=== PATIENT | female | born 1945 | race Caucasian/White ===

== ENCOUNTER 2016-05-07 11:45 | Emergency (ER) | payer OTHER ==
[2016-05-07] MEDS ORDERED: ASPIRIN PO ONE (11:55)
[2016-05-07 12:11] LABS: MANUAL DIFF NEEDED? NO
[2016-05-07 12:12] LABS: BASO% 0.7 % (0.0-0.8); EOS# 0.18 X1000 (0.0-0.7); EOS% 1.7 % (0.0-10.0); HEMATOCRIT 40.3 % (37.0-47.0); HEMOGLOBIN 13.5 g/dL (12.0-16.0); IMM GRAN# 0.03 X1000 (0.0-0.04); IMM GRAN% 0.3 % (0.0-0.5); LYMPH# 3.18 X1000 (1.2-3.4); LYMPH% 30.5 % (20.5-51.1); MCH 30.8 PG (27-31); MCHC 33.5 g/dL (33-37); MONO% 9.6 % (1.7-9.3); MPV 10.3 FL (7.4-10.4); NEUT% 57.2 % (42.2-75.2); PLT 365 X1000 (130-400); RBC 4.38 XMIL (4.2-5.4)
[2016-05-07 12:33] LABS: AGAP 12; ALBUMIN 4.1 g/dL (3.5-5.0); ALKALINE PHOSPHATASE 101 U/L (32-104); BUN 9 mg/dL (8-22); CALCIUM 10.5 mg/dL (8.8-10.2); CHLORIDE 101 mmol/L (98-107); CK PROFILE 32 U/L (24-173); COSMO 275; GOT 13 U/L (10-30); GPT 10 U/L (10-36); MAGNESIUM 2.2 mg/dL (1.5-2.7); POTASSIUM 4.4 mmol/L (3.5-5.1); SODIUM 138 mmol/L (136-145); TCO2 25 mmol/L (25-35); TOTAL PROTEIN 6.8 g/dL (6.3-8.3)
--- NOTE | 2016-05-07 13:00 | PROVIDER DOCUMENTATION ---
HPI-Chest Pain - General Source: patient - History of Present Illness-CP Location: reports: substernal Chest Pain Radiation: reports: back Quality of Pain: reports: tightness Severity in ED: mild, moderate Onset/Duration: abrupt, 1 hour ago Timing: improving, intermittent Context/Activities at Onset: reports: light activity Modifying Factors: improves with: nothing Associated Symptoms: reports: back pain, shortness of breath. denies: dizziness , fatigue, fever/chills, headache, nausea, vomiting Nitro Today/Relief: no nitro taken today Aspirin Treatment Today: 325 mg x 1, provided by ED Prior Chest Pain/Cardiac Workup: reports: no prior chest pain Similar Symptoms Previously?: No Recently Seen Here or By Another Healthcare Provider: Yes <Seymour Potter - Last Filed: 05/07/16 15:58> <Fredi Valencia - Last Filed: 05/07/16 17:20> - General Chief Complaint: Shortness of Breath Stated Complaint: CHEST TIGHTNESS,SOB Time Seen by Provider: 05/07/16 11:52 Allergies/Adverse Reactions: Patient Allergies Allergy/AdvReac Type Severity Reaction Status Date / Time Sulfa (Sulfonamide Allergy ANAPHYLAXIS Verified 08/18/15 01:01 Antibiotics) Home Medications: Home Medication List Medication Instructions Recorded Confirmed Last Taken Type Levothyroxine [Synthroid] 88 microgm PO DAILY 09/05/12 08/18/15 08/17/15 08:00 History Cetirizine HCl [Zyrtec] 10 mg PO DAILY 08/18/15 08/18/15 08/17/15 08:00 History Diltiazem HCl [Diltiazem 24Hr Cd] 240 mg PO DAILY 08/18/15 08/18/15 08/17/15 08: 00 History L.acidoph,Paracasei, B.lactis 1 each PO DAILY 08/18/15 08/18/15 08/17/15 08:00 History [Probiotic] Pantoprazole [Protonix] 40 mg PO DAILY@0700 08/18/15 08/18/15 08/17/15 08:00 History Polyethylene Glycol 3350 [Miralax] 17 gm PO DAILY 08/18/15 08/18/15 08/17/15 08: 00 History - History of Present Illness-CP Nature of Presenting Problem: patient is a 70 yo F that presents to the ER after having an episode of chest tightness. Pain is gone now but as been intermitted. patient reports having a cough, weakness, and shortness of breath x 3 weeks. Patient denies fever/chills , n/v/d but does have back pain. Has possible ischemic issues with heart and is followed by . Patient has been traveling back and forth to [place] , working on a house. (Seymour Potter) Review of Systems - Adult - REVIEW OF SYSTEMS - ADULT Constitutional: denies: chills, fever Eyes: reports: no symptoms reported Ears, Nose, Mouth & Throat: denies: ear pain, sinus problem, throat pain, throat swelling Cardiovascular: reports: chest pain. denies: palpitations, syncope Respiratory: reports: cough, shortness of breath. denies: wheezing Gastrointestinal: denies: abdominal pain, diarrhea, nausea, vomiting Genitourinary: reports: no symptoms reported Musculoskeletal: reports: back pain, muscle weakness. denies: joint pain, muscle aches, neck pain Integumentary: reports: no symptoms reported Neurological: reports: no symptoms reported Psychiatric: reports: no symptoms reported Endocrine: reports: no symptoms reported Hematologic/Lymphatic: reports: no symptoms reported Allergic/Immunologic: reports: no symptoms reported All Other Systems: Reviewed and Negative <Seymour Potter - Last Filed: 05/07/16 15:58> Past History - Adult - PAST MEDICAL HISTORY-ADULT Review of Records: reports: Old Records Reviewed, Nursing Assessment Review, Medications Reviewed Cardiovascular: reports: HTN Respiratory: reports: COPD Gastrointestinal: reports: diverticulosis Genitourinary: reports: other (renal cyst) Endocrine/Immune: reports: hypoglycemia - PRIOR SURGERIES/PROCEDURES Surgical/Procedure History: reports: colonoscopy, cholecystectomy, hysterectomy - IMMUNIZATION STATUS Childhood Immunizations: See Nurse Assessment Flu Vaccine: See Nurse Assessment - FAMILY HISTORY Family History: reviewed, not pertinent - SOCIAL HISTORY Smoking: cigarettes, less than 1 pack/day Living Situation: family <Seymour Potter - Last Filed: 05/07/16 15:58> Physical Exam-General - PHYSICAL EXAM-ADULT Initial Vital Signs Reviewed: Yes - CONSTITUTIONAL General Appearance: alert, no apparent distress - EYES Eyes: PERRL/EOMI, pink conjunctivae - HEAD, EARS, NOSE, MOUTH & THROAT HENMT: normocephalic/atraumatic, moist mucous membranes, normal ENT inspection - NECK Neck: non-tender, full range of motion, normal inspection - RESPIRATORY Respiratory: chest non-tender, lungs clear, normal breath sounds, no respiratory distress, no accessory muscle use - CARDIOVASCULAR Cardiovascular: regular rate, rhythm, no edema, no gallop, no murmur - GASTROINTESTINAL (ABDOMEN) Abdominal Exam: normal bowel sounds, non tender, soft, no organomegaly, no pulsatile mass - MUSCULOSKELETAL Back Exam: no CVA tenderness, no vertebral tenderness Extremity: normal range of motion, normal inspection, no pedal edema, normal capillary refill - SKIN Integumentary: normal color, warm/dry - NEUROLOGIC Neurologic: grossly normal, no motor/sensory deficits - PSYCHIATRIC Psych/Mental Status: normal mood/affect, normal thought content, normal thought process, oriented x 3 <Seymour Potter - Last Filed: 05/07/16 15:58> Progress - EKG 1 Time of EKG reading by physician:: 11:53 EKG Read and Signed by:: Fredi Valencia EKG Interpretation (*Must complete 3 of following elements*): Abnormal Rate: 105 Rhythm: Sinus tachycardia [place]: normal QRS: normal NV Interval: normal ST Wave: non-specific ST changes 2 Time of EKG reading by physician:: 14:16 EKG Read and Signed by:: Fredi Valencia EKG Interpretation (*Must complete 3 of following elements*): Abnormal Rate: 85 Rhythm: NSR [place]: normal QRS: normal NV Interval: normal ST Wave: non-specific ST changes - XRAY 1 XRAY Study: Chest Impression: Normal XRAY Interpretation: nml - CONSULTS/PCP/HOSPITALIST Notification #1 *Consult/PCP/Hospitalist*: Dr.Peter Benavides Time Discussed: 15:54 Consult Disposition: other (do third set of cardiacs if normal f/u in office) <Seymour Potter - Last Filed: 05/07/16 15:58> <Fredi Vaelncia - Last Filed: 05/07/16 17:20> - PLAN OF CARE/RESULTS Progress/Plan/Lab Results: plan of care-cardiac 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 These instructions are being provided to you so you can have an understanding of how to care for yourself upon discharge. Upon discharge from the Emergency Department, you are responsible for making arrangements for follow-up care by a physician of your choice. Take all prescribed medications as directed. Return to the Emergency Department immediately for any new or worsening symptoms. You may call the Physician Referral phone number at [phone] to obtain a list of Physicians who are taking new patients. Referrals: Carlos Eduardo Solomon MD [Primary Care Provider] - Manuel Mcleod MD [STAFF PHYSICIAN] - Call for Appoint. 1-2days Attestation - Scribe Verification/Attestation Scribe:: Seymour Potter Acting as Scribe for:: Fredi Valencia Scribe documention review:: This chart was documented by a scribe and accurately reflects the service the provider performed and the decisions made by the provider. <Seymour Potter - Last Filed: 05/07/16 15:58> Physician Attestation - Physician Attestation I, the provider, attest to the following statement:: Fredi Valencia Physician documentation Attestation:: This documentation recorded by the scribe accurately reflects the service I personally performed and the decisions made by me. <Seymour Potter - Last Filed: 05/07/16 15:58>
[2016-05-07 13:16] LABS: INR 0.95 (0.86-1.15)
[2016-05-07 13:17] LABS: PTT PL 29.2 Seconds (22.6-43.9)
[2016-05-07 13:47] LABS: BE 3.3 mmoll (-3.0-3.0); BLOOD TYPE ARTERIAL; METHB 0.9 % (0.0-1.5); O2(CT) 16.4 mL/dL (15.0-23.0); PCO2(98.6) 41 mmHg (35-45); PO2(98.6) 66 mmHg (60-100); SAMPLE BLOOD; SAO2 94.8 % (95.0-100.0); THB 13.1 g/dL (11.5-17.4); pH(98.6) 7.44 (7.35-7.45)
--- NOTE | 2016-05-07 13:54 | EKG Report ---
Test Performed on : 05/07/2016 11:53:56 AM Test Reason : chest tightness sob Blood Pressure : / mmHG Vent. Rate : 105 BPM Atrial Rate : 105 BPM P-R Int : 126 ms QRS Dur : 080 ms QT Int : 336 ms P-R-T Axes : 078 076 034 degrees QTc Int : 444 ms Sinus tachycardia. Nonspecific ST abnormality Abnormal ECG When compared with ECG of 17-AUG-2015 18:25, No significant change was found Unconfirmed Result
[2016-05-07 14:24] LABS: ALLEN TEST YES; DRAW SITE L RADIAL; MODALITY ROOM AIR
--- NOTE | 2016-05-07 14:28 | EKG Report ---
Test Performed on : 05/07/2016 2:16:16 PM Test Reason : cp Blood Pressure : / mmHG Vent. Rate : 085 BPM Atrial Rate : 085 BPM P-R Int : 134 ms QRS Dur : 082 ms QT Int : 368 ms P-R-T Axes : 074 071 033 degrees QTc Int : 437 ms Normal sinus rhythm. with sinus arrhythmia. Nonspecific ST abnormality Abnormal ECG When compared with ECG of 07-MAY-2016 11:53, (Unconfirmed) No significant change was found Unconfirmed Result
--- NOTE | 2016-05-07 17:07 | ED EKG INTERP ---
EKG Interpretation - EKG Time of EKG reading by physician:: 16:51 EKG Read and Signed by:: Fredi Valencia EKG Interpretation (*Must complete 3 of following elements*): Abnormal Rate: 74 Rhythm: NSR [place]: normal QRS: normal [place] Interval: normal ST Wave: non-specific ST changes Attestation - Scribe Verification/Attestation Scribe:: Seymour Potter Acting as Scribe for:: Fredi Valencia Scribe documention review:: This chart was documented by a scribe and accurately reflects the service the provider performed and the decisions made by the provider. Physician Attestation - Physician Attestation I, the provider, attest to the following statement:: Fredi Valencia Physician documentation Attestation:: This documentation recorded by the scribe accurately reflects the service I personally performed and the decisions made by me.
--- NOTE | 2016-05-07 17:07 | EKG Report ---
Test Performed on : 05/07/2016 4:51:11 PM Test Reason : cp Blood Pressure : / mmHG Vent. Rate : 074 BPM Atrial Rate : 074 BPM P-R Int : 142 ms QRS Dur : 084 ms QT Int : 390 ms P-R-T Axes : 071 070 032 degrees QTc Int : 432 ms Normal sinus rhythm. with sinus arrhythmia. Nonspecific ST abnormality Abnormal ECG When compared with ECG of 07-MAY-2016 14:16, (Unconfirmed) No significant change was found Unconfirmed Result
[2016-05-07 17:22] VITALS: BP 160/83
== END 2016-05-07 17:38 | disposition home or self-care (01) ==
LOC: P.ED 11:45
DX: R07.9 Chest pain, unspecified (principal); R94.31 Abnormal electrocardiogram [ECG] [EKG]; R05 Cough; R06.02 Shortness of breath; M54.9 Dorsalgia, unspecified; M62.81 Muscle weakness (generalized); I10 Essential (primary) hypertension; J44.9 Chronic obstructive pulmonary disease, unspecified; Z79.899 Other long term (current) drug therapy; F17.210 Nicotine dependence, cigarettes, uncomplicated
CPT/HCPCS: 36415; 71020; 80053; 82550; 82805; 83735; 83880; 84443; 84484; 85025; 85379; 85610; 85730; 93005; 99284

== ENCOUNTER 2016-05-30 13:30 | Emergency (ER) | payer OTHER ==
[2016-05-30] MEDS ORDERED: ASPIRIN PO STA (13:33)
--- NOTE | 2016-05-30 13:57 | EKG Report ---
Test Performed on : 05/30/2016 1:34:46 PM Test Reason : CHEST PAIN Blood Pressure : / mmHG Vent. Rate : 089 BPM Atrial Rate : 089 BPM P-R Int : 128 ms QRS Dur : 082 ms QT Int : 342 ms P-R-T Axes : 086 080 074 degrees QTc Int : 416 ms Normal sinus rhythm. with sinus arrhythmia. Nonspecific ST abnormality Abnormal ECG When compared with ECG of 07-MAY-2016 16:51, No significant change was found Unconfirmed Result
--- NOTE | 2016-05-30 14:07 | ED EKG INTERP ---
EKG Interpretation - EKG Time of EKG reading by physician:: 13:34 EKG Read and Signed by:: Fredi Valencia EKG Interpretation (*Must complete 3 of following elements*): Abnormal Rate: 89 Rhythm: normal sinus rhythm with sinus arrythmia Comments: nonspecific ST abnormality. Attestation - Scribe Verification/Attestation Scribe:: Mi Chadwick Acting as Scribe for:: Fredi Valencia Scribe documention review:: This chart was documented by a scribe and accurately reflects the service the provider performed and the decisions made by the provider.
[2016-05-30 14:08] LABS: MANUAL DIFF NEEDED? NO
[2016-05-30 14:11] LABS: BASO% 0.7 % (0.0-0.8); EOS# 0.17 X1000 (0.0-0.7); HEMATOCRIT 40.3 % (37.0-47.0); HEMOGLOBIN 13.4 g/dL (12.0-16.0); IMM GRAN# 0.04 X1000 (0.0-0.04); IMM GRAN% 0.5 % (0.0-0.5); LYMPH# 2.53 X1000 (1.2-3.4); LYMPH% 30.3 % (20.5-51.1); MCH 30.3 PG (27-31); MCHC 33.3 g/dL (33-37); MCV 91.2 FL (81-99); MONO# 0.66 X1000 (0.11-0.59); MONO% 7.9 % (1.7-9.3); MPV 10.5 FL (7.4-10.4); NEUT% 58.6 % (42.2-75.2); PLT 279 X1000 (130-400); RBC 4.42 XMIL (4.2-5.4)
[2016-05-30 14:25] LABS: INR 0.9 (0.86-1.15); PROTIME 12.5 Seconds (12.1-15.5)
[2016-05-30 14:26] LABS: PTT PL 27.6 Seconds (22.6-43.9)
--- NOTE | 2016-05-30 14:28 | PROVIDER DOCUMENTATION ---
HPI-Chest Pain - General Source: patient - History of Present Illness-CP Location: reports: central Chest Pain Radiation: reports: no radiation Quality of Pain: reports: pressure Severity in ED: mild Onset/Duration: this morning Timing: gone now Context/Activities at Onset: reports: light activity Modifying Factors: improves with: nothing Associated Symptoms: reports: abdominal pain (LLQ), headache, nausea. denies: back pain, diaphoresis, dizziness, edema, fatigue, fever/chills, heartburn, rash , shortness of breath, swelling/lump in chest, syncope, vomiting, weakness Nitro Today/Relief: 0.4 mg x 1, provided at home, complete relief Aspirin Treatment Today: 81 mg x 1, provided at home Prior Chest Pain/Cardiac Workup: reports: angina, cardiac cath Similar Symptoms Previously?: Yes Recently Seen Here or By Another Healthcare Provider: No <Mi Chadwick - Last Filed: 05/30/16 17:07> <Fredi Valencia - Last Filed: 05/31/16 22:44> - General Chief Complaint: Chest Pain Stated Complaint: CHEST PAIN Time Seen by Provider: 05/30/16 14:07 Allergies/Adverse Reactions: Patient Allergies Allergy/AdvReac Type Severity Reaction Status Date / Time Sulfa (Sulfonamide Allergy ANAPHYLAXIS Verified 08/18/15 01:01 Antibiotics) Home Medications: Home Medication List Medication Instructions Recorded Confirmed Last Taken Type Levothyroxine [Synthroid] 88 microgm PO DAILY 09/05/12 08/18/15 05/30/16 History Cetirizine HCl [Zyrtec] 10 mg PO DAILY 08/18/15 08/18/15 05/30/16 History Diltiazem HCl [Diltiazem 24Hr Cd] 240 mg PO DAILY 08/18/15 08/18/15 05/30/16 History L.acidoph,Paracasei, B.lactis 1 each PO DAILY 08/18/15 08/18/15 05/30/16 History [Probiotic] Polyethylene Glycol 3350 [Miralax] 17 gm PO DAILY 08/18/15 08/18/15 05/30/16 History Famotidine 1 tab PO DAILY 05/30/16 05/30/16 05/30/16 History - History of Present Illness-CP Nature of Presenting Problem: Pt is 70 y/o F presents to the ED with chest pain. Pt states CP stated this am. Pt states N but denies V. Pt states having recent travels. Pt states recently quit smoking. Pt states pain felt like a pressure. Pt states taking BP and BP was higher in R arm verses L arm. 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 (Mi Chadwick) Review of Systems - Adult - REVIEW OF SYSTEMS - ADULT Constitutional: denies: chills, fever Eyes: denies: blurred vision, double vision Ears, Nose, Mouth & Throat: denies: ear pain, nose pain, throat pain Cardiovascular: reports: chest pain, irregular heart rate (tachy). denies: heart murmur Respiratory: denies: cough, shortness of breath, wheezing Gastrointestinal: reports: abdominal pain (LLQ), nausea. denies: diarrhea, vomiting Genitourinary: denies: dysuria, hematuria Musculoskeletal: denies: bone pain, joint pain, neck pain Integumentary: denies: hives, itching Neurological: reports: headache/migraines (BECERRA). denies: dizziness/vertigo Psychiatric: reports: no symptoms reported Endocrine: reports: no symptoms reported Hematologic/Lymphatic: reports: no symptoms reported Allergic/Immunologic: reports: no symptoms reported All Other Systems: Reviewed and Negative <Mi Chadwick - Last Filed: 05/30/16 17:07> Past History - Adult - PAST MEDICAL HISTORY-ADULT Review of Records: reports: Nursing Assessment Review, Medications Reviewed, Social history reviewed & non-contributory. Major Childhood Illnesses: reports: denies history Cardiovascular: reports: HTN Respiratory: reports: COPD Gastrointestinal: reports: diverticulosis Obstetrical/Gynecological: reports: denies history Genitourinary: reports: kidney disease, other (renal cyst) Musculoskeletal: reports: denies history Neurological: reports: denies history Endocrine/Immune: reports: Diabetes, hypoglycemia, thyroid disorder Other Conditions: reports: denies history - PRIOR SURGERIES/PROCEDURES Surgical/Procedure History: reports: colonoscopy, cholecystectomy, hysterectomy - IMMUNIZATION STATUS Childhood Immunizations: See Nurse Assessment Flu Vaccine: See Nurse Assessment - FAMILY HISTORY Family History: reviewed, not pertinent - SOCIAL HISTORY Smoking: quit less than 1 year, cigarettes Provider spent 3-5 mins advising pt. on dangers of tobacco.: Discussed manners to quit use, and f/u contacts for add'l counseling. Substance Use: denies Living Situation: family <Jessica Chadwickomi - Last Filed: 05/30/16 17:07> Physical Exam-General - PHYSICAL EXAM-ADULT Initial Vital Signs Reviewed: Yes - CONSTITUTIONAL General Appearance: appears well, alert, no apparent distress - EYES Eyes: PERRL/EOMI, pink conjunctivae, fundi clear, no AV nicking - HEAD, EARS, NOSE, MOUTH & THROAT HENMT: normocephalic/atraumatic, moist mucous membranes, normal ENT inspection, TMs normal, pharynx normal - NECK Neck: non-tender, full range of motion, supple, normal inspection - RESPIRATORY Respiratory: chest non-tender, lungs clear, normal breath sounds, no pleuratic chest pain, no respiratory distress, no accessory muscle use - CARDIOVASCULAR Cardiovascular: normal peripheral pulses, no edema, no gallop, no JVD, no murmur , tachycardia - GASTROINTESTINAL (ABDOMEN) Abdominal Exam: normal bowel sounds, soft, no organomegaly, no pulsatile mass, tenderness (LLQ) - LYMPHATIC Lymphatic: no adenopathy - MUSCULOSKELETAL Back Exam: normal inspection, no CVA tenderness, no vertebral tenderness Extremity: normal range of motion, non-tender, normal gait, normal inspection, no pedal edema, no calf tenderness, normal capillary refill, pelvis stable - SKIN Integumentary: normal color, normal turgor, warm/dry - NEUROLOGIC Neurologic: grossly normal - PSYCHIATRIC Psych/Mental Status: normal mood/affect, oriented x 3 <FarrukhMi - Last Filed: 05/30/16 17:07> Progress - EKG 1 Time of EKG reading by physician:: 16:49 EKG Read and Signed by:: Fredi Valencia EKG Interpretation (*Must complete 3 of following elements*): Normal Rate: 77 Rhythm: normal sinus rhythm Comments: normal ECG - XRAY 1 XRAY: Bilateral XRAY Study: Chest Impression: Normal XRAY Interpretation: no evidence of acute chest pathology <Mi Chadwick - Last Filed: 05/30/16 17:07> <Fredi Valencia - Last Filed: 05/31/16 22:44> - PLAN OF CARE/RESULTS Progress/Plan/Lab Results: Laboratory Tests 05/30/16 05/30/16 14:03 14:03 WBC 8.36 RBC 4.42 Hgb 13.4 Hct 40.3 MCV 91.2 MCH 30.3 MCHC 33.3 RDW Std Deviation 13.6 Plt Count 279 MPV 10.5 H Immature Gran % (Auto) 0.5 Neut % (Auto) 58.6 Lymph % (Auto) 30.3 Randall % (Auto) 7.9 Eos % (Auto) 2.0 Baso % (Auto) 0.7 Immature Gran # (Auto) 0.04 Neut # (Auto) 4.90 Lymph # (Auto) 2.53 Randall # (Auto) 0.66 H Eos # (Auto) 0.17 Baso # (Auto) 0.06 PT 12.5 INR 0.90 APTT (Factor Assay) 27.6 Orders Category Date Time Status Cardiac Monitoring DIRECTED Care 05/30/16 13:33 Active Oxygen Therapy- ED Nursing DIRECTED Care 05/30/16 13:33 Active Saline Loc NOW Care 05/30/16 13:33 Active CHEST-2 VIEWS [RAD] Stat Exams 05/30/16 13:33 Taken CBC WITH ELECTRONIC DIFF [HEME] Stat Lab 05/30/16 14:03 Completed CK PROFILE [SP CHEM] Stat Lab 05/30/16 14:03 Received COMPREHENSIVE METABOLIC PANEL [CHEM] Stat Lab 05/30/16 14:03 Received MAGNESIUM [CHEM] Stat Lab 05/30/16 14:03 Received PRO B-NATRIURETIC PEPTIDE Stat Lab 05/30/16 14:03 Received PR[address]IME WITH INR PL [COAG] Stat Lab 05/30/16 14:[address] [COAG] Stat Lab 05/30/16 14:03 Completed TROPONIN T Stat Lab 05/30/16 14:03 Received Aspirin Med 05/30/16 13:33 Discontinued 325 mg PO STAT STA EKG [EKG] Stat Ther 05/30/16 13:33 Draft Vital Signs - 24 hr 05/30/16 13:35 Temperature 96.9 F L Pulse Rate 115 H Respiratory 24 Rate Blood Pressure 181/90 O2 Sat by Pulse 95 Oximetry Laboratory Tests 05/30/16 05/30/16 05/30/16 14:03 14:03 14:03 WBC RBC Hgb Hct MCV MCH MCHC RDW Std Deviation Plt Count MPV Immature Gran % (Auto) Neut % (Auto) Lymph % (Auto) Randall % (Auto) Eos % (Auto) Baso % (Auto) Immature Gran # (Auto) Neut # (Auto) Lymph # (Auto) Randall # (Auto) Eos # (Auto) Baso # (Auto) PT INR APTT (Factor Assay) Sodium 139 Potassium 4.5 Chloride 104 Carbon Dioxide 27 Anion Gap 9 BUN 10 Creatinine 0.6 Estimated GFR/1.73 m2 > 60 BUN/Creatinine Ratio 17 Glucose 131 H Calculated Osmolality 278 Calcium 9.2 Magnesium 2.2 Total Bilirubin 0.20 AST 15 ALT 13 Alkaline Phosphatase 83 Creatine Kinase 26 Troponin T < 0.010 Ugv-V-Youhhksgnuo Pept 78 Total Protein 7.0 Albumin 4.3 Globulin 3.0 Albumin/Globulin Ratio 2.0 05/30/16 05/30/16 14:03 14:03 WBC 8.36 RBC 4.42 Hgb 13.4 Hct 40.3 MCV 91.2 MCH 30.3 MCHC 33.3 RDW Std Deviation 13.6 Plt Count 279 MPV 10.5 H Immature Gran % (Auto) 0.5 Neut % (Auto) 58.6 Lymph % (Auto) 30.3 Randall % (Auto) 7.9 Eos % (Auto) 2.0 Baso % (Auto) 0.7 Immature Gran # (Auto) 0.04 Neut # (Auto) 4.90 Lymph # (Auto) 2.53 Randall # (Auto) 0.66 H Eos # (Auto) 0.17 Baso # (Auto) 0.06 PT 12.5 INR 0.90 APTT (Factor Assay) 27.6 Sodium Potassium Chloride Carbon Dioxide Anion Gap BUN Creatinine Estimated GFR/1.73 m2 BUN/Creatinine Ratio Glucose Calculated Osmolality Calcium Magnesium Total Bilirubin AST ALT Alkaline Phosphatase Creatine Kinase Troponin T Zuc-W-Jyuxtumnjbo Pept Total Protein Albumin Globulin Albumin/Globulin Ratio Laboratory Tests 05/30/16 05/30/16 05/30/16 14:03 14:03 14:03 WBC RBC Hgb Hct MCV MCH MCHC RDW Std Deviation Plt Count MPV Immature Gran % (Auto) Neut % (Auto) Lymph % (Auto) Randall % (Auto) Eos % (Auto) Baso % (Auto) Immature Gran # (Auto) Neut # (Auto) Lymph # (Auto) Randall # (Auto) Eos # (Auto) Baso # (Auto) PT INR APTT (Factor Assay) Sodium 139 Potassium 4.5 Chloride 104 Carbon Dioxide 27 Anion Gap 9 BUN 10 Creatinine 0.6 Estimated GFR/1.73 m2 > 60 BUN/Creatinine Ratio 17 Glucose 131 H Calculated Osmolality 278 Calcium 9.2 Magnesium 2.2 Total Bilirubin 0.20 AST 15 ALT 13 Alkaline Phosphatase 83 Creatine Kinase 26 Troponin T < 0.010 Qpr-J-Ipcdzctujeb Pept 78 Total Protein 7.0 Albumin 4.3 Globulin 3.0 Albumin/Globulin Ratio 2.0 05/30/16 05/30/16 14:03 14:03 WBC 8.36 RBC 4.42 Hgb 13.4 Hct 40.3 MCV 91.2 MCH 30.3 MCHC 33.3 RDW Std Deviation 13.6 Plt Count 279 MPV 10.5 H Immature Gran % (Auto) 0.5 Neut % (Auto) 58.6 Lymph % (Auto) 30.3 Randall % (Auto) 7.9 Eos % (Auto) 2.0 Baso % (Auto) 0.7 Immature Gran # (Auto) 0.04 Neut # (Auto) 4.90 Lymph # (Auto) 2.53 Randall # (Auto) 0.66 H Eos # (Auto) 0.17 Baso # (Auto) 0.06 PT 12.5 INR 0.90 APTT (Factor Assay) 27.6 Sodium Potassium Chloride Carbon Dioxide Anion Gap BUN Creatinine Estimated GFR/1.73 m2 BUN/Creatinine Ratio Glucose Calculated Osmolality Calcium Magnesium Total Bilirubin AST ALT Alkaline Phosphatase Creatine Kinase Troponin T Jyz-G-Heflixjuljc Pept Total Protein Albumin Globulin Albumin/Globulin Ratio Laboratory Tests 05/30/16 05/30/16 05/30/16 14:03 14:03 14:03 WBC RBC Hgb Hct MCV MCH MCHC RDW Std Deviation Plt Count MPV Immature Gran % (Auto) Neut % (Auto) Lymph % (Auto) Randall % (Auto) Eos % (Auto) Baso % (Auto) Immature Gran # (Auto) Neut # (Auto) Lymph # (Auto) Randall # (Auto) Eos # (Auto) Baso # (Auto) PT INR APTT (Factor Assay) Sodium 139 Potassium 4.5 Chloride 104 Carbon Dioxide 27 Anion Gap 9 BUN 10 Creatinine 0.6 Estimated GFR/1.73 m2 > 60 BUN/Creatinine Ratio 17 Glucose 131 H Calculated Osmolality 278 Calcium 9.2 Magnesium 2.2 Total Bilirubin 0.20 AST 15 ALT 13 Alkaline Phosphatase 83 Creatine Kinase 26 Troponin T < 0.010 Xqr-V-Ochoemjlahj Pept 78 Total Protein 7.0 Albumin 4.3 Globulin 3.0 Albumin/Globulin Ratio 2.0 05/30/16 05/30/16 05/30/16 14:03 14:03 14:20 WBC 8.36 RBC 4.42 Hgb 13.4 Hct 40.3 MCV 91.2 MCH 30.3 MCHC 33.3 RDW Std Deviation 13.6 Plt Count 279 MPV 10.5 H Immature Gran % (Auto) 0.5 Neut % (Auto) 58.6 Lymph % (Auto) 30.3 Randall % (Auto) 7.9 Eos % (Auto) 2.0 Baso % (Auto) 0.7 Immature Gran # (Auto) 0.04 Neut # (Auto) 4.90 Lymph # (Auto) 2.53 Randall # (Auto) 0.66 H Eos # (Auto) 0.17 Baso # (Auto) 0.06 PT 12.5 INR 0.90 APTT (Factor Assay) 27.6 Sodium Potassium Chloride Carbon Dioxide Anion Gap BUN Creatinine Estimated GFR/1.73 m2 BUN/Creatinine Ratio Glucose Calculated Osmolality Calcium Magnesium Total Bilirubin AST ALT Alkaline Phosphatase Creatine Kinase 23 L Troponin T Oof-L-Sgwuvyfqueg Pept Total Protein Albumin Globulin Albumin/Globulin Ratio 05/30/16 14:20 WBC RBC Hgb Hct MCV MCH MCHC RDW Std Deviation Plt Count MPV Immature Gran % (Auto) Neut % (Auto) Lymph % (Auto) Randall % (Auto) Eos % (Auto) Baso % (Auto) Immature Gran # (Auto) Neut # (Auto) Lymph # (Auto) Randall # (Auto) Eos # (Auto) Baso # (Auto) PT INR APTT (Factor Assay) Sodium Potassium Chloride Carbon Dioxide Anion Gap BUN Creatinine Estimated GFR/1.73 m2 BUN/Creatinine Ratio Glucose Calculated Osmolality Calcium Magnesium Total Bilirubin AST ALT Alkaline Phosphatase Creatine Kinase Troponin T < 0.010 Hbx-L-Drvdgfdokzq Pept Total Protein Albumin Globulin Albumin/Globulin Ratio (Mi Chadwick) Departure <Mi Chadwick - Last Filed: 05/30/16 17:07> - Departure Time of Disposition Order: 17:37 Certified Medical Emergency: Emergent <Fredi Valencia - Last Filed: 05/31/16 22:44> - Departure DIAGNOSIS: Hypertension Qualifiers: Hypertension type: essential hypertension Qualified Code(s): I10 - Essential ( primary) hypertension COPD (chronic obstructive pulmonary disease) Qualifiers: COPD type: unspecified COPD Qualified Code(s): J44.9 - Chronic obstructive pulmonary disease, unspecified Disposition: HOME 01 Condition: Stable Additional Instructions: ED Follow Up Instructions: You have been treated by a care provider in the Emergency Department. These instructions are being provided to you so you can have an understanding of how to care for yourself upon discharge. Upon discharge from the Emergency Department, you are responsible for making arrangements for follow-up care by a physician of your choice. Take all prescribed medications as directed. Return to the Emergency Department immediately for any new or worsening symptoms. You may call the Physician Referral phone number at [phone] to obtain a list of Physicians who are taking new patients. Referrals: Carlos Eduardo Solomon MD [Primary Care Provider] - Instructions: Chronic Obstructive Pulmonary Disease Exacerbation, Uyaj-vm-[id number] , Hypertension Attestation - Scribe Verification/Attestation Scribe:: Mi Chadwick Acting as Scribe for:: Fredi Valencia Scribe documention review:: This chart was documented by a scribe and accurately reflects the service the provider performed and the decisions made by the provider. <Mi Chadwick - Last Filed: 05/30/16 17:07> Physician Attestation
[2016-05-30 14:44] LABS: AGAP 9; ALBUMIN 4.3 g/dL (3.5-5.0); ALKALINE PHOSPHATASE 83 U/L (32-104); BUN 10 mg/dL (8-22); CALCIUM 9.2 mg/dL (8.8-10.2); CHLORIDE 104 mmol/L (98-107); CK PROFILE 26 U/L (24-173); COSMO 278; GOT 15 U/L (10-30); GPT 13 U/L (10-36); MAGNESIUM 2.2 mg/dL (1.5-2.7); POTASSIUM 4.5 mmol/L (3.5-5.1); SODIUM 139 mmol/L (136-145); TCO2 27 mmol/L (25-35)
--- NOTE | 2016-05-30 16:10 | Diag Imaging Result Document ---
PROCEDURE NAME: CHEST-2 VIEWS - 05/30/2016 PA AND LATERAL RADIOGRAPH OF THE CHEST: COMPARISON: 05/07/2016. FINDINGS: The lungs are grossly clear. There is no discrete pleural fluid collection or evidence of pneumothorax. The cardiomediastinal silhouette and upper airway are grossly unremarkable. IMPRESSION: No evidence of acute chest pathology.
--- NOTE | 2016-05-30 17:19 | EKG Report ---
Test Performed on : 05/30/2016 4:49:33 PM Test Reason : cp Blood Pressure : / mmHG Vent. Rate : 077 BPM Atrial Rate : 077 BPM P-R Int : 134 ms QRS Dur : 084 ms QT Int : 380 ms P-R-T Axes : 074 074 064 degrees QTc Int : 430 ms Normal sinus rhythm. Normal ECG When compared with ECG of 30-MAY-2016 13:34, (Unconfirmed) No significant change was found Unconfirmed Result
[2016-05-30 17:42] VITALS: BP 138/78
== END 2016-05-30 18:15 | disposition home or self-care (01) ==
LOC: P.ED 13:30
DX: J44.9 Chronic obstructive pulmonary disease, unspecified (principal); I10 Essential (primary) hypertension; R07.9 Chest pain, unspecified; R00.0 Tachycardia, unspecified; R10.32 Left lower quadrant pain; R11.0 Nausea; R51 Headache; E11.9 Type 2 diabetes mellitus without complications; Z79.899 Other long term (current) drug therapy; E07.9 Disorder of thyroid, unspecified; Z87.891 Personal history of nicotine dependence; R94.31 Abnormal electrocardiogram [ECG] [EKG]
CPT/HCPCS: 71020; 80053; 82550; 83735; 83880; 84484; 85025; 85610; 85730; 93005; 99284